=== PATIENT | female | born 1950 | race Caucasian/White ===

== ENCOUNTER 2023-07-03 08:05 | Emergency (ER) | payer MEDICARE ==
[~2023-07-03] VITALS: Ht 162.6 cm; Wt 68.0 kg
[2023-07-03 08:19] VITALS: O2SAT 99
[2023-07-03] MEDS ORDERED: AMOX-494 MT (08:38)
[2023-07-03] MEDS ORDERED: ACET-2708 MT (08:38)
[2023-07-03] MEDS ORDERED: IBUPROFEN 800MG TABLET PO ONE (08:45)
[2023-07-03 09:04] VITALS: BP 139/40
[2023-07-03 09:05] VITALS: PULSE 101; RESP 18; TEMP 98.1
== END 2023-07-03 09:05 | disposition home or self-care (01) ==
LOC: ER 08:05
DX: J02.9 Acute pharyngitis, unspecified (principal); E11.9 Type 2 diabetes mellitus without complications
CPT/HCPCS: 99281; 99283